=== PATIENT | male | born 1995 | race Caucasian/White ===

== ENCOUNTER 2017-03-03 23:50 | Emergency (ER) | payer BC, OTHER ==
[~2017-03-03] VITALS: Ht 172.7 cm; Wt 86.0 kg
[~2017-03-03 23:50] MED LIST: FEXO1TAB45 PO
[2017-03-04 00:07] VITALS: TEMP 36.6; Ht 172.7 cm; Wt 86.0 kg
--- NOTE | 2017-03-04 00:09 | EMERGENCY ROOM VISIT NOTE ---
History First contact with patient: 00:01 Chief Complaint: ALCOHOL OVERDOSE Stated Complaint: ALCOHOL OVERDOSE History of Present Illness The patient is a 21 year old male who presents to the Emergency Room with complaints of alcohol overdose. The patient was with his brother at the bar. Reportedly, the patient began vomiting and seemed very sleepy and drowsy. His brother therefore called 911. He was brought to the emergency department via ambulance. The patient has been vomiting. He is alert and responsive to verbal stimuli. The patient denies any pain, injuries or medical history. Review of Systems A 10 system review of systems was completed with positives and pertinent negatives listed in the HPI. Past Medical/Surgical History patient denies Social History Smoking Status: Unknown if Ever Smoked Alcohol Use: heavy Occupation Status: [employer] student Current/Historical Medications No Active Prescriptions or Reported Meds Physical Exam Vital Signs Date Time Temp Pulse Resp B/P (MAP) Pulse Ox O2 Delivery O2 Flow Rate FiO2 03/04/17 07:07 89 15 116/76 99 03/04/17 06:35 61 14 99 03/04/17 06:30 106/80 03/04/17 06:05 84 14 98 03/04/17 06:00 91 14 120/60 97 03/04/17 05:30 79 14 102/57 92 03/04/17 05:00 74 16 87/63 94 03/04/17 04:31 95/67 03/04/17 04:30 74 16 94 03/04/17 04:05 101/70 03/04/17 04:02 75/64 03/04/17 04:00 66 14 91 03/04/17 03:55 69 14 93 03/04/17 03:30 103/65 03/04/17 03:25 102 16 96 03/04/17 03:09 78 03/04/17 03:00 110/50 03/04/17 02:55 85 16 93 03/04/17 02:50 83 15 93 03/04/17 02:30 77/48 03/04/17 02:20 78 16 92 03/04/17 02:00 76/39 03/04/17 01:50 78 15 96 03/04/17 01:30 91/44 03/04/17 01:20 74 11 95 03/04/17 01:00 94/52 03/04/17 00:50 73 18 95 03/04/17 00:30 92/64 03/04/17 00:20 91 22 94 03/04/17 00:12 93 Room Air 03/04/17 00:07 36.6 90 14 106/61 93 Room Air 03/04/17 00:07 93 Room Air 03/04/17 00:00 106/61 03/03/17 23:57 90 03/03/17 23:56 91/66 Physical Exam VITALS: Vitals are noted on the nurse's note and reviewed by myself. Vital signs stable. GENERAL: This is a 21 year old male appears to be intoxicated and smells of alcohol, in no acute distress, nondiaphoretic, well-developed well-nourished. SKIN: The skin was without rashes, erythema, edema, or bruising. There are no lacerations or abrasions. There is no tenting of the skin. Capillary reflex less than 2 seconds. HEAD: Normocephalic atraumatic. EARS: External auditory canals clear, tympanic membranes pearly valenzuela without erythema or effusion bilaterally. No hemotympanums. No gardiner sign. No mastoid tenderness. EYES: Pupils equal round and reactive to light and accommodation. Conjunctivae without injection, sclerae without icterus. Extraocular movements intact. NOSE: Patent, turbinates without inflammation or discharge. No septal hematoma or bleeding. FACE: No facial tenderness. Full range of motion of the jaw without tenderness. MOUTH: Mucous membranes moist. Pharynx without erythema or exudate. Uvula midline. Airway patent. Tongue does not deviate. NECK: Supple without nuchal rigidity. Cervical spine is nontender. Full range of motion of the neck without tenderness. No JVD. HEART: Regular rate and rhythm without murmurs gallops or rubs. LUNGS: Clear to auscultation bilaterally without wheezes, rales or rhonchi. No retractions or accessory muscle use. No chest tenderness. ABDOMEN: Positive bowel sounds x 4. N Soft, nontender, without masses or organomegaly. MUSCULOSKELETAL: No muscle atrophy, erythema, or edema noted. Full range of motion without joint tenderness in all extremities. Strength 5/5 throughout. NEURO: Patient was alert and oriented to person place . No focal neurological deficits. Medical Decision & Procedures Laboratory Results 03/04/17 00:01 Test 03/04/17 00:01 Anion Gap 8.0 mmol/L (3-11) Est Creatinine Clear Calc Drug Dose 113.3 ml/min Estimated GFR () 110.6 Estimated GFR (Non- 95.5 BUN/Creatinine Ratio 7.1 (10-20) Calcium Level 8.0 mg/dl (8.5-10.1) Ethyl Alcohol mg/dL 314.0 mg/dl (0-3) Medical Decision Prior records/ancillary studies reviewed. Triage Nursing notes reviewed. Additional history obtained from EMS/nursing. The patient's history was concerning for altered mental status and a possible alcohol overdose. Differential diagnosis: Etiologies such as alcohol intoxication, toxicologic, infection, hypoglycemia, electrolyte abnormalities, cardiac sources, intracerebral event, neurologic, as well as others were entertained. Physical examination: As above. The patient is clinically intoxicated. There was no trauma noted. ER treatment provided: Monitoring Aspiration precautions The patient was frequently reassessed. Diagnostic interpretation by me: Cardiac monitoring did not reveal any evidence of dysrhythmia. The labs revealed no acute electrolyte abnormality. The patient's blood alcohol level was 314 mg/dL. The patient's history was reviewed once they were more coherent and their intoxication cleared. The patient states they have been in good health recently and had no medical complaints. The patient admitted to consuming alcohol. No additional concerning findings were noted. The patient complained of no symptoms to suggest assault. This appears to be consistent with an isolated overdose of alcohol. By the evaluation outlined above emergent etiologies such as trauma, infection, hypoglycemia, electrolyte abnormalities, cardiac sources, intracerebral event, neurologic,as well as others were deemed relatively unlikely. The patient was informed about the findings as listed above. The patient was counseled on the dangers of excessive alcohol use. I gave my usual and customary discussion regarding this issue. All questions were answered and the patient was pleased with the treatment. Return instructions were outlined and the patient was discharged in stable condition once their mental status improved and a safe destination was confirmed. The patient's brother who was sober arrived at the emergency department to take him home and took responsibility for him. Outpatient prescription management: None Referral: The patient was referred back to their primary care physician for follow-up in 2 to 3 days for a recheck of their current condition. Impression Primary Impression: Alcohol overdose Additional Impression: Alcoholic intoxication Departure Information Dispostion Home / Self-Care Condition GOOD Prescriptions No Active Prescriptions or Reported Meds Referrals No Doctor, Assigned (PCP) Patient Instructions Alcohol Abuse - [facility], [facility] Additional Instructions Rest Stay well hydrated Avoid tylenol and alcohol Return with worsening symptoms. Otherwise, follow up with your family doctor this week Problem Qualifiers Primary Impression: Alcohol overdose Encounter type: initial encounter Additional Impression: Alcoholic intoxication Complication of substance-induced condition: uncomplicated Qualified Codes: F10.920 - Alcohol use, unspecified with intoxication, uncomplicated
[2017-03-04 00:12] VITALS: O2SAT 93
[2017-03-04 00:31] LABS: BUN/CREATININE RATIO 7.1 (10-20); CREATININE 1.1 mg/dl (0.60-1.40); POTASSIUM 3.1 mmol/L (3.5-5.1)
[2017-03-04 07:07] VITALS: BP 116/76; PULSE 89; O2SAT 99
== END 2017-03-04 07:09 | disposition home or self-care (01) ==
LOC: EDBD 23:50 → C.EDB 23:53
DX: T51.91XA Toxic effect of unspecified alcohol, accidental (unintentional), initial encounter (principal)